=== PATIENT | male | born 1970 | race American Indian/Alaskan Native ===

== ENCOUNTER 2020-03-06 06:48 | Day surgery (SDC) | payer OTHER ==
[2020-03-06] MEDS ORDERED: ASPIRIN EC 325 MG TAB PO ONE (07:20)
[2020-03-06 07:42] LABS: Basophils % (Auto) 0.7 % (0.0-1.8); Eosinophils # (Auto) 0.3 K/mm3 (0.0-0.4); Eosinophils % (Auto) 4.5 % (0.0-4.3); Hemoglobin 14.9 gm/dl (11.8-15.2); Lymphocytes # (Auto) 1.9 K/mm3 (1.2-5.4); Lymphocytes % (Auto) 29.3 % (13.4-35.0); Mean Corpuscular HGB Conc 34 % (32-34); Mean Corpuscular Volume 98 fl (84-94); Monocytes # (Auto) 0.5 K/mm3 (0.0-0.8); Monocytes % (Auto) 7.2 % (0.0-7.3); Platelet Count 223 K/mm3 (140-440); Red Blood Count 4.49 M/mm3 (3.65-5.03); Red Cell Distribution Width 13.4 % (13.2-15.2)
[2020-03-06] MEDS: SODIUM CHLORIDE 0.9% 500 ML 500 ML IV SCH ×2 (07:49→09:00)
[2020-03-06 07:52] LABS: INR 1.1 (0.87-1.13)
[2020-03-06 07:53] LABS: BUN/Creatinine Ratio 18; Blood Urea Nitrogen 20 mg/dL (9-20); Calcium 9.2 mg/dL (8.4-10.2); Hemolysis Index 3
[2020-03-06] MEDS ORDERED: HEPARIN/NS 5000 UNIT/500ML 1,000 ML IR ONE (08:01)
[2020-03-06] MEDS ORDERED: fentaNYL 100 MCG/2 ML INJ ONE (08:01)
[2020-03-06] MEDS ORDERED: MIDAZOLAM 2 MG/2 ML INJ ONE (08:01)
[2020-03-06] MEDS ORDERED: NITROGLYCERIN SYRINGE 3 ML ONE (08:02)
[2020-03-06] MEDS: LIDOCAINE (2%) 20 MG/1 ML VIAL 20 ML MDV INFILTRATI ONE ×2 (08:59→09:03)
[2020-03-06] MEDS: HEPARIN 10,000 UNITS/10 ML VIAL ONE ×2 (09:00→09:06)
[2020-03-06] MEDS: VERAPAMIL 5 MG/2 ML INJ ONE ×2 (09:00→09:06)
--- NOTE | 2020-03-06 09:56 | Cardiac Catherization Report ---
INDICATION FOR PROCEDURE: The patient is a 49-year-old gentleman with history of essential hypertension. Underwent intervention of the ostial, proximal LAD stenosis with a drug-eluting stent on 08/05/2018 at [facility] with excellent result. Presently scheduled for cardiac catheterization for evaluation of the left main stent status. Apparently, the patient stopped taking his atorvastatin. DESCRIPTION OF PROCEDURE: The patient was brought to the catheterization laboratory in a fasting condition. The patient was explained of the procedure, potential complications and alternatives of therapy available. The patient was brought to the catheterization laboratory in a fasting condition. The patient was evaluated for moderate sedation and was felt to be appropriate candidate for moderate sedation. The patient received IV Versed and fentanyl. Subsequently, the patient was prepared in standard fashion. Local anesthesia was given in the right wrist area and subsequently, right radial artery access was obtained using 21-gauge arterial puncture needle. A 5-Qatari slender sheath was introduced. Initially multipurpose catheter was used to obtain the angiograms of the left ventricle done in HARRIS projection. This is followed by obtaining the angiograms of the left coronary artery using a JL3.5 and TIG catheters. CMT catheter was used to obtain the angiograms of the right coronary artery. At the end of the procedure, catheter and sheath were removed. The patient tolerated the procedure well. The patient was monitored throughout the procedure with pulse oximetry, EKG monitoring and hemodynamic monitoring. The patient tolerated the procedure well. No untoward complications were noted. The patient was transferred to the room in stable condition. The patient's moderate sedation started at 8:59 a.m. and ended at 9:19 a.m. The patient at the end of the procedure is breathing normally, communicating normally with no focal deficits. Following findings were noted. HEMODYNAMICS: 1. Aortic pressure 107/63, left ventricular pressure 108/14. No gradient across the aortic valve. Estimated ejection fraction 50-55%. 2. Left ventriculogram done in HARRIS projection shows normal sized left ventricle with normal contractility. End-diastolic pressure is within normal limits. Coronary angiography, left coronary angiography showed a stent in the ostial left main and proximal LAD is widely patent with no significant angiographic stenosis. There is a smooth stenosis in the mid LAD approaching 30%. Otherwise, rest of the LAD and its branches and circumflex artery and its branch are angiographically smooth and normal. Right coronary artery, which is arising somewhat anteriorly is dominant vessel showing only minimal irregularities. FINAL IMPRESSION: 1. Normal sized left ventricle with normal contractility and normal end-diastolic pressure. 2. Widely patent ostial left main stent. Mild 30% mid LAD smooth lesion. Considering the above angiographic pictures, would continue aggressive risk factor modification including optimal control of the lipids. Blood pressure is normal. Continue present medical therapy. Findings were explained to the patient and . No untoward complications were noted. JOB# [id number] ADALI/NTS
--- NOTE | 2020-03-06 11:02 | Short Stay Summary ---
Short Stay Documentation Date of service: 03/06/20 - History H&P: obtained from office - Allergies and Medications Current Medications: Allergies No Known Allergies Allergy (Verified 03/06/20 07:14) Home Medications Medication Instructions Recorded Confirmed Last Taken Type Aspirin EC [Halfprin EC] 81 mg PO QDAY 03/06/20 03/06/20 03/05/20 History 81 mg AtorvaSTATin [Lipitor] 40 mg PO DAILY 03/06/20 03/06/20 03/05/20 History 40 mg Losartan [Cozaar] 50 mg PO DAILY 03/06/20 03/06/20 03/05/20 History 50 mg Metoprolol Xl [Metoprolol 25 mg PO DAILY 03/06/20 03/06/20 03/05/20 History SUCCINATE ER TAB] 25 mg Active Medications Sodium Chloride (Nacl 0.9% 500 Ml) 500 mls @ 50 mls/hr IV DIRECT CHANCE Stop: 03/06/20 17:59 Last Admin: 03/06/20 09:00 Dose: 50 mls/hr Documented by: - Brief post op/procedure progress note Date of procedure: 03/06/20 Pre-op diagnosis: CAD Post-op diagnosis: same Procedure: [facility] - see dictated cath report Anesthesia: local Estimated blood loss: none Condition: stable - Disposition Condition at discharge: Good Disposition: [id number] TO HOME OR SELFCARE - Discharge Diagnoses (1) CAD (coronary artery disease) Status: Chronic (2) Stented coronary artery Status: Chronic Short Stay Discharge Plan Activity: advance as tolerated Diet: low fat, low cholesterol, low salt Wound: open to air, keep clean and dry, per your surgeon's advice Follow up with: CYNDI HU MD [Primary Care Provider] - 7 Days
[2020-03-06 14:30] VITALS: BP 119/82
== END 2020-03-06 15:03 | disposition home or self-care (01) ==
LOC: CATHLABREC 06:48
PROVIDERS: ATTEND Internal Medicine
DX: I25.110 Atherosclerotic heart disease of native coronary artery with unstable angina pectoris (principal); I10 Essential (primary) hypertension; E78.01 Familial hypercholesterolemia; Z79.899 Other long term (current) drug therapy; Z79.82 Long term (current) use of aspirin; Z72.89 Other problems related to lifestyle; Z95.5 Presence of coronary angioplasty implant and graft; Z98.890 Other specified postprocedural states; Z83.3 Family history of diabetes mellitus; Z82.49 Family history of ischemic heart disease and other diseases of the circulatory system
CPT/HCPCS: 80048; 85025; 85610; 93005; 93458; 99156; C1887; C1894; J1644; J2250; J3010; J7040; Q9967